=== PATIENT | male | born 1945 | race Caucasian/White ===

== ENCOUNTER 2017-10-12 18:00 | Emergency (ER) | payer OTHER, MEDICARE ==
--- NOTE | 2017-10-12 19:07 | EDPHY ---
H & P Stated Complaint: H/A x 6 months;cough x 5-6 days - Personal History Current Tetanus Diphtheria and Acellular Pertussis (TDAP): Yes Tetanus Vaccine Date: 2014 - Medical/Surgical History Hx Asthma: No Hx Chronic Respiratory Disease: No Hx Diabetes: No Hx Cardiac Disease: No Hx Renal Disease: No Hx Cirrhosis: No Hx Alcoholism: No Hx HIV/AIDS: No Hx Splenectomy or Spleen Trauma: No Other PMH: hormone issues. anxiety. brain surg 2016. HTN - Social History Smoking Status: Never smoked Time Seen by Provider: 10/12/17 18:51 HPI/ROS: CHIEF COMPLAINT: URI symptoms x6 days HISTORY OF PRESENT ILLNESS: 72-year-old male drove to the ER with 2 complaints. First and primary complaint is 6 days of productive cough, concerns over pneumonia. No influenza vaccination. No fever or chills. No chest pain. No nausea or vomiting. No dyspnea. 2nd complaint is requesting CT scan for ongoing non thunderclap nonprogressive headache for the past 6 months. History of bilateral subdural hematoma in 2016. He would like to have a repeat CT scan performed in the ER. Denies acute symptoms. Denies gait instability. Denies slurred speech. Eyes visual disturbance. Denies nausea or vomiting. PRIMARY CARE PROVIDER:Dr. Mino Monreal REVIEW OF SYSTEMS: A ten point review of systems was performed and is negative with the exception of the items mentioned in the HPI PAST MEDICAL & SURGICAL HISTORY: Parietal stroke, bilateral subdural hematoma. SOCIAL HISTORY: Lives by himself, nonsmoker PHYSICAL EXAM (Prior to examination, patient consented to physical exam, hands were washed and my usual and customary physical exam procedures followed) 1) GENERAL: Well-developed, well-nourished, alert and oriented. Appears to be in no acute distress. 2) HEAD: Normocephalic, atraumatic 3) HEENT: Pupils equal, round, reactive to light bilaterally. Sclera anicteric. Nasopharynx, oropharynx, clear, no lesions. No tonsillar enlargement date. Ears bilaterally with normal tympanic membranes. 4) NECK: Full range of motion, no meningeal signs. 5) LUNGS: Clear auscultation bilaterally, no wheezes, no rhonchi, no retractions. 6) HEART: Regular rate and rhythm, no murmur, no heave, no gallop. 7) ABDOMEN: No guarding, no rebound, no focal tenderness, negative McBurney's, negative Barnes's, negative Rovsing's, negative peritoneal sign, 8) MUSCULOSKELETAL: Moving all extremities, no focal areas of tenderness, no obvious trauma. No peripheral edema or discoloration. 9) BACK: No CVA tenderness, no midline vertebral tenderness, no fluctuance, no step-off, no obvious trauma, no visual or palpable abnormality. 10) SKIN: No rash, no petechiae. 11) Psychiatric: Patient is oriented X 3, there is no agitation. 12) NEURO: Awake, alert, and oriented to person, place and time. Answers questions appropriately. There were no obvious focal neurologic abnormalities. No cerebellar dysfunction. Cranial nerves 2 through to 12 intact. Normal steady gait. Upper and lower extremities bilaterally with strength 5 / 5, reflexes 2+. DIFFERENTIAL DIAGNOSIS: In no particular include but limited to influenza, bronchitis, pneumonia (Shaheen,Babar Shannon) Constitutional: Initial Vital Signs Temperature (C) 36.6 C 10/12/17 18:00 Heart Rate 98 10/12/17 18:00 Respiratory Rate 20 10/12/17 18:00 Blood Pressure 167/108 H 10/12/17 18:00 O2 Sat (%) 92 10/12/17 18:00 O2 Delivery Mode Room Air Allergies/Adverse Reactions: Sulfa (Sulfonamide Antibiotics) Allergy (Unknown, Verified 10/12/17 18:02) Home Medications: Medication Instructions Recorded Oxandrolone [OXANDROLONE] 5 mg PO Q4 05/10/16 Testosterone IM [Testosterone 200 mg IM PRN PRN 05/10/16 100mg/ml IM inj (*)] Zolpidem Tartrate [Ambien 10 mg] 5 mg PO HS PRN 05/10/16 Amoxicillin/Clavulanate Pot 875 mg PO BID #6 tab 05/16/16 [Augmentin 875 MG TAB (*)] Furosemide [Lasix 20 MG (*)] 20 mg PO DAILY #5 tab 05/16/16 Lisinopril [Zestril 20 mg (*)] 20 mg PO BID #60 tab 05/16/16 Metoprolol Tartrate [Lopressor 50 50 mg PO BID #60 tab 05/16/16 mg (*)] levETIRAcetam [Keppra 500 mg (*)] 750 mg PO BID #60 tab 05/16/16 AZITHROMYCIN [Z-PACK] 500 mg PO DAILY #1 packet 10/12/17 Medical Decision Making - Diagnostics Imaging Results: Images reviewed myself (Babar Jamison) ED Course/Re-evaluation: 7:07 p.m.: Patient has a nonfocal exam, requesting CT imaging, concerned about his chronic headache for the past 6 months. History of subdural hematoma. Requesting CT scan which will be obtained , as well as chest x-ray. 8:33 p.m.: Patient re-evaluated. Discussed his imaging results showing no acute intracranial pathology, no definitive infiltrate. Noted to have sinusitis on his CT the head. Plan will be discharged with azithromycin, follow up primary care provider. He feels comfortable with this plan. Usual customary discharge precautions and instructed of eyed. Care of patient under supervision of [secondary] supervising physician Dr Darby Mckeon. (Babar Jamison) Other Provider: The patient was evaluated and managed by the Physician Parachute Folder. My co- signature indicates that I have reviewed this chart and I agree with the findings and plan of care as documented. I am the secondary supervising physician. (Darby Mckeon) Departure - Departure Disposition: Home, Routine, Self-Care Clinical Impression: Headache, Sinusitis Condition: Good Instructions: Sinusitis (ED) Additional Instructions: Return to the emergency department immediately for change in breathing habits, change in voice, change in swallowing habits, change in mental status, or any other symptoms that concern you. Referrals: Mino Monreal MD [Primary Care Provider] - 1-2 days without fail Prescriptions: AZITHROMYCIN [Z-PACK] 500 mg PO DAILY #1 packet
[2017-10-12 20:54] VITALS: BP 138/75; PULSE 79; RESP 16; TEMP 98.2; O2SAT 96
== END 2017-10-12 20:55 | disposition home or self-care (01) ==
DX: J32.9 Chronic sinusitis, unspecified (principal); I10 Essential (primary) hypertension